=== PATIENT | female | born 1940 | race African-American/Black ===

== ENCOUNTER 2023-10-29 08:38 | Outpatient (CLI) | payer MEDICARE, SELFPAY ==
--- NOTE | 2023-10-29 08:45 | XR_ITS ---
FINAL REPORT CLINICAL HISTORY: foot pain, knots on medial & lateral side of foot COMPARISON: None FINDINGS: LEFT FOOT Three views of the left foot demonstrate no acute fracture or dislocation. There are mild degenerative changes. A pes planus deformity is noted. The soft tissues are unremarkable. IMPRESSION: Degenerative/chronic changes without acute bony abnormality. Reviewed, Interpreted and Dictated by Issa Winston III, MD Transcribed by Sana Bennett Authenticated and [facility]
--- NOTE | 2023-10-29 08:45 | XR_ITS ---
FINAL REPORT CLINICAL HISTORY: foot pain, knot on plantar surface COMPARISON: None FINDINGS: RIGHT FOOT 3 views of the right foot were obtained. There is no acute fracture or dislocation. There are mild degenerative changes. A pes planus deformity is noted. There are mild soft tissue calcifications. IMPRESSION: Degenerative/chronic changes without acute bony abnormality. Reviewed, Interpreted and Dictated by Issa Winston III, MD Transcribed by Sana Bennett Authenticated and [facility]
== END 2023-10-29 23:59 | disposition home or self-care (01) ==
LOC: RAD 08:40
PROVIDERS: PCP Family Medicine; Visit Provider Nurse Practitioner
DX: M79.671 Pain in right foot (principal); M79.672 Pain in left foot
CPT/HCPCS: 73630